=== PATIENT | female | born 1930 | race Caucasian/White ===

== ENCOUNTER → 2018-03-15 | Outpatient (CLI) | payer OTHER ==
[~2018-03-15] MED LIST: ACET325 PO; ACIDOPHILUS1 EAC1 PO; ALBU90OI INH; ALBU90OI61 INH; ANTACID II SIM PO; ARTHRITIS PAIN650 MG PO; ATOR10 PO; Augmentin 875-1 EACH PO; BENZ100A; BENZ100A PO; BIOTIN-D1 GM MC; BISA10S PR; BISM87SU PO; BLOOD PRESSURE MED; BUDE10.22; BUME2 PO; CENTRUM COMPLE1 EACH PO; CEPH500; CETI5 PO; CICLODAN 8% K34.6 ML TP; CLOB.05TC; CLON.5 PO; CLOP75; CLOP75 PO; CONEST.9; CONEST.9 PO; CVS DISPOSABLE399 ML PR; CYCL0.05OP OP; Calcium + Vita1 EACH PO; DOCU100 PO; Desyrel50 MG; ESOM20; Enablex7.5 MG PO; FEXO180; FEXO180 PO; FISH1000; FISH1000 PO; FLUO.05TO TOP; FLUSAL1005 IH; FLUSAL2505; FLUSAL2505 IH; FLUT.05NI; Fiber Tabs625 MG PO; Flonase 0.05% N16 GM; GABA100; HYDMETSO BOTHEYES; HYOS0.375T; KRILL OIL 3001 EACH PO; LAVAP17G PO; LEVFLO500 PO; LEVSOD75; LEVSOD75 PO; LOSA50 PO; MELA3; MELA3 PO; METO25 PO; MOMENI; MONT10T; MONT10T PO; MULVITA; MULVITA PO; Milk Of Ma400 MG/5 M PO; Mucinex Dm Tab1 EAC1 PO; Norvasc10 MG PO; OMEP20ER PO; OSEL75CA PO; OXYB5 PO; PANT40 PO; POLY500 PO; POTCHL10ER PO; Prednisone20 MG PO; RANI150 PO; RESTASIS 0.05%; RESTASIS OU; SIMBRINZA 1%-0.28 ML; SIMV10 PO; Super B Comple150 MG PO; TRAM50 PO; TRAZ50 PO; TROSPIUM CHLORI20 MG PO; Toviaz4 MG PO; WARF2; WARF2 PO
== END | disposition home or self-care (01) ==
LOC: LAB SHORT 14:40 → LAB 14:40
DX: N39.0 Urinary tract infection, site not specified (principal)
CPT/HCPCS: 87086